=== PATIENT | male | born 1990 | race African-American/Black ===

== ENCOUNTER 2018-09-27 22:32 | Emergency (ER) | payer SELFPAY ==
[~2018-09-27] VITALS: Ht 172.7 cm; Wt 65.8 kg
[2018-09-27 22:45] VITALS: BP 130/80
--- NOTE | 2018-09-27 23:04 | Emergency Room Report ---
History of Present Illness General Chief Complaint: Foreign Body Source: Patient Present Illness HPI Patient is a 28-year-old male brought in by self after increased foreign body sensation to his throat. Patient reports having eaten fast food restaurant and subsequently having sensation of foreign body. He reports having possibly swallowed an avocado stem. He denies any chest discomfort. He reports having onset approximately 2 hours prior to arrival. He denies any other locations of discomfort. He denies any other prior medical history. He denies any fever or other concerns. Allergies: Coded Allergies: No Known Allergies (Unverified , 09/27/18) Patient History Past Medical History: see triage record Reviewed Nursing Documentation: PMH: Agreed; PSxH: Agreed Nursing Documentation-PMH Past Medical History: No Stated History Review of Systems All Other Systems: negative except mentioned in HPI Physical Exam Vital Signs Date Time Temp Pulse Resp B/P (MAP) Pulse Ox O2 Delivery O2 Flow Rate FiO2 09/27/18 22:35 98.2 74 18 130/80 (97) 99 Sp02 EP Interpretation: reviewed, normal General Appearance: normal inspection, well appearing, no apparent distress, alert, GCS 15 Head: atraumatic ENT: normal ENT inspection, hearing grossly normal, normal voice, other - small tonsolith to right tonsil, no erythema or swelling Neck: normal inspection, full range of motion, supple, no bony tend Respiratory: normal inspection, lungs clear, normal breath sounds, no respiratory distress, no retraction, no wheezing Cardiovascular #1: regular rate, rhythm, no edema Gastrointestinal: normal inspection, normal bowel sounds, non tender, soft, no guarding, no hernia Genitourinary: no CVA tenderness Musculoskeletal: normal inspection, back normal, normal range of motion Neurologic: normal inspection, alert, responsive, speech normal Psychiatric: normal inspection, judgement/insight normal, mood/affect normal Medical Decision Making Diagnostic Impression: Primary Impression: Tonsillith ER Course Patient presented for sore throat. Differential diagnosis include was not limited to foreign body, pharyngitis, tonsillitis among others. Patient has a benign exam and does not appear to require any further imaging or laboratory testing at this time. Patient does not show any evidence of bacterial infection. He appears to have some white tonsillitis to the right patient advised to gargle with salt water. He was advised to recheck with his primary care physician. He is advised to return if he has any worsening condition or other concerns. He does not appear to have abscess. Last Vital Signs Date Time Temp Pulse Resp B/P (MAP) Pulse Ox O2 Delivery O2 Flow Rate FiO2 09/27/18 22:35 98.2 74 18 130/80 (97) 99 Status: improved Disposition: HOME, SELF-CARE Condition: Stable Patient Instructions: Swallowed Foreign Body, Adult Alonzo Mccarty MD Sep 27, 2018 23:04
[2018-09-27 23:30] VITALS: BP 130/80
--- NOTE | 2018-09-27 23:30 | NUR ---
ER DISCHARGE NOTE: Patient is cleared to be discharged per ERMD, pt is aox4, on room air, with stable vital signs. pt was given dc and prescription instructions, pt was able to verbalize understanding, pt id band removed. pt is able to ambulate with steady gait. pt took all belongings.
--- NOTE | 2018-09-28 02:10 | NUR ---
ED Nurse Note: Pt ambulated to Ed from home c/o foreign object in his throat. Pt reported eating [employer] last. Pt is A&Ox4, VSS. Pt reports 4/10 throat pain
== END 2018-09-27 23:30 | disposition home or self-care (01) ==
LOC: EMR 23:00
DX: J03.90 Acute tonsillitis, unspecified (principal)
CPT/HCPCS: 99281